=== PATIENT | male | born 1940 | race Hispanic/Latino ===

== ENCOUNTER 2017-03-06 16:23 | Observation (INO) | payer MEDICARE, BC ==
[2017-03-06 17:57] LABS: BASO # 0.1 K/uL (0.0-0.2); BASO % 1.1 % (0.0-2.0); EOS # 0.1 K/uL (0.0-0.7); EOS % 1.4 % (0.0-4.0); HEMATOCRIT 36.4 % (35.0-51.0); LYMPH # 1.2 K/uL (1.0-4.3); LYMPH % 23.8 % (20.0-40.0); MEAN CELL VOLUME 97.1 fL (80.0-94.0); MEAN CORPUSCULAR HEMOGLOBIN 33.3 pg (27.0-31.0); MEAN CORPUSCULAR HGB CONC 34.3 g/dL (33.0-37.0); MEAN PLATELET VOLUME 9.2 fL (7.2-11.7); MONO # 0.6 K/uL (0.0-0.8); MONO % 11.4 % (0.0-10.0); RED CELL DISTRIBUTION WIDTH 13.1 % (11.5-14.5); WHITE BLOOD COUNT 5.2 K/uL (4.8-10.8)
[2017-03-06 17:58] LABS: CHLORIDE 103 mmol/L (98-107)
[2017-03-06 17:59] LABS: POTASSIUM 3.9 mmol/L (3.6-5.2); SODIUM 138 mmol/L (132-148)
[2017-03-06 18:01] LABS: GFR AFRICAN-AMERICAN > 60
[2017-03-06 18:02] LABS: ALB/GLOB RATIO 1.5 (1.0-2.1); ALKALINE PHOSPHATASE 69 U/L (38-126); ALT/SGPT 36 U/L (21-72); AST/SGOT 32 U/L (17-59); BILIRUBIN,TOTAL 1.2 mg/dL (0.2-1.3); BLOOD UREA NITROGEN 21 mg/dL (9-20); CARBON DIOXIDE 23 mmol/L (22-30); GLUCOSE,RANDOM 93 mg/dL (75-110); TOTAL PROTEIN 6.7 g/dL (6.3-8.3)
--- NOTE | 2017-03-06 18:15 | C.PDOC ---
History Of Present Illness 76 year old patient presents to the ED complaining of shortness of breath for the past 4 days. Patient sts SOB is worse at night , specially when he is supine in the bed. In December, patient notes he had a pacemaker put in. He reports he was feeling fine until the shortness of breath started. Patient also complains of mild lower extremity swelling for the past couple of weeks. Patient denies chest pain, nausea, vomiting, fever or cough. Time Seen by Provider: 03/06/17 17:07 Chief Complaint (Nursing): Shortness Of Breath History Per: Patient History/Exam Limitations: no limitations Onset/Duration Of Symptoms: Days (4) Current Symptoms Are (Timing): Still Present Current Respiratory Medications: See Home Med List Severity: Mild Pain Scale Rating Of: 3 Associated Symptoms: Ankle/Leg Swelling Reports Recently: Treated By A Physician, Hospitalized Recent travel outside of the [place]: No Past Medical History Reviewed: Historical Data, Nursing Documentation, Vital Signs Vital Signs: Last Vital Signs Temp 97.8 F 03/06/17 16:29 Pulse 80 03/06/17 18:40 Resp 16 03/06/17 18:40 BP 97/70 L 03/06/17 18:40 Pulse Ox 95 03/06/17 18:40 Surgical History: Pacemaker - [facility] Procedures FLUOROSCOPY OF LEFT HEART USING LOW OSMOLAR CONTRAST (01/16/17) FLUOROSCOPY OF MULT COR ART USING L OSM CONTRAST (01/16/17) MEASURE OF CARDIAC SAMPL & PRESSURE, L HEART, PERC APPROACH (01/16/17) Family History: States: Unknown Family Hx - Social History Hx Alcohol Use: Yes (on occasions) Hx Substance Use: No - Immunization History Hx Tetanus Toxoid Vaccination: No Hx Influenza Vaccination: No Hx Pneumococcal Vaccination: No Review Of Systems Except As Marked, All Systems Reviewed And Found Negative. Constitutional: Negative for: Fever Cardiovascular: Positive for: Other (bilateral lower extremity swelling). Negative for: Chest Pain Respiratory: Positive for: Shortness of Breath. Negative for: Cough Gastrointestinal: Negative for: Nausea, Vomiting Physical Exam - Physical Exam Appears: Non-toxic, No Acute Distress Skin: Warm, Dry Head: Atraumatic, Normacephalic Oral Mucosa: Moist Neck: Normal ROM, Supple Chest: Symmetrical Cardiovascular: Rhythm Regular Respiratory: Normal Breath Sounds, No Rales, No Rhonchi, No Wheezing Gastrointestinal/Abdominal: Soft, No Tenderness Back: Normal Inspection, No CVA Tenderness Extremity: Pedal Edema (+1 pitting; bilateral) Extremity: Bilateral: Atraumatic Neurological/Psych: Oriented x3 ED Course And Treatment - Laboratory Results Result Diagrams: 03/06/17 17:48 03/06/17 17:48 ECG: Interpreted By Me, Viewed By Me Interpretation Of ECG: atrial-sense vertricular paced rhythm. no acute st-t wave changes Rate From EC (bpm) O2 Sat by Pulse Oximetry: 96 (room air) Pulse Ox Interpretation: Normal Progress Note: Plan: EKG, Labs, Chest x-ray Reevaluation Time: 18:49 - Physician Consult Information Physician Contacted: Joanne Murrieta Outcome Of Conversation: Accepted patient to [facility] for observation. Disposition - Disposition Disposition: HOSPITALIZED Disposition Time: 18:49 Condition: FAIR - Clinical Impression Clinical Impression: Dyspnea, CHF (congestive heart failure) - PA / DEVELOPMENT COACH / Resident Statement MD/DO has reviewed & agrees with the documentation as recorded. - Scribe Statement The provider has reviewed the documentation as recorded by the Scribe Jeniffer Forman All medical record entries made by the Scribe were at my direction and personally dictated by me. I have reviewed the chart and agree that the record accurately reflects my personal performance of the history, physical exam, medical decision making, and the department course for this patient. I have also personally directed, reviewed, and agree with the discharge instructions and disposition. Decision To Admit - Pt Status Changed To: Hospital Disposition Of: Observation - . Bed Request Type: Telemetry Admitting Physician: Joanne Murrieta Patient Diagnosis: Dyspnea, CHF (congestive heart failure)
[2017-03-06 18:16] LABS: INR 1.2
[2017-03-06 19:10] LABS: RBC URINE < 1 /hpf (0-3); URINE BILIRUBIN NEGATIVE (NEGATIVE); URINE BLOOD NEGATIVE (NEGATIVE); URINE COLOR Yellow (YELLOW); URINE GLUCOSE (UA) NORMAL (Normal); URINE KETONE NEGATIVE (NEGATIVE); URINE LEUKOCYTE ESTERASE NEG Leu/uL (Negative); URINE PROTEIN NEGATIVE (NEGATIVE); WBC URINE < 1 /hpf (0-5)
[2017-03-07 08:32] VITALS: PULSE 64; RESP 17; TEMP 97.4; O2SAT 95
[2017-03-07] MEDS: Enoxaparin 40 mg Syringe SC SCH ×2 (10:05→10:17)
[2017-03-07] MEDS: Omega-3-Acid Ethyl Esters 1 GM Cap PO SCH ×2 (10:05→10:18)
[2017-03-07] MEDS: Pantoprazole 40 mg EC Tab PO SCH ×2 (10:05→10:19)
[2017-03-07] MEDS: Potassium Chloride 20 mEq ER Tab PO SCH ×2 (10:05→10:19)
--- NOTE | 2017-03-07 10:15 | RAD ---
PROCEDURE: CHEST RADIOGRAPH, 1 VIEW HISTORY: Shortness of breath COMPARISON: 01/18/2017 FINDINGS: LUNGS: The right lung is clear. There is left retrocardiac airspace disease. PLEURA: There is blunting of the left costophrenic angle. No pneumothorax or right pleural fluid seen. CARDIOVASCULAR: The heart remains enlarged. There is interval placement of a left-sided dual lead transvenous permanent pacing device. Atherosclerotic aortic arch calcifications are present. . OSSEOUS STRUCTURES: No significant abnormalities. VISUALIZED UPPER ABDOMEN: Normal. OTHER FINDINGS: None. IMPRESSION: 1. Suspect left lower lobe atelectasis/pneumonia and small pleural effusion. 2. Persistent cardiomegaly.
[2017-03-07 10:23] VITALS: BP 97/62
--- NOTE | 2017-03-07 11:17 | CP.PCM.CON ---
Past Patient History - Past Medical History & Family History Past Medical History?: No - Past Social History Smoking Status: Never Smoked - CARDIAC Hx Cardiac Disorders: Yes Hx Congestive Heart Failure: Yes Hx Hypercholesterolemia: Yes Hx Hypertension: Yes Hx Pacemaker: Yes - PULMONARY Hx Respiratory Disorders: No - NEUROLOGICAL Hx Neurological Disorder: No - HEENT Hx HEENT Problems: No - RENAL Hx Chronic Kidney Disease: No - ENDOCRINE/METABOLIC Hx Endocrine Disorders: No - HEMATOLOGICAL/ONCOLOGICAL Hx Blood Disorders: No - INTEGUMENTARY Hx Dermatological Problems: No - MUSCULOSKELETAL/RHEUMATOLOGICAL Hx Musculoskeletal Disorders: No Hx Falls: No - GASTROINTESTINAL Hx Gastrointestinal Disorders: No - GENITOURINARY/GYNECOLOGICAL Hx Genitourinary Disorders: No - PSYCHIATRIC Hx Psychophysiologic Disorder: No Hx Substance Use: No - SURGICAL HISTORY Hx Surgeries: Yes Other/Comment: Pacemaker placement - ANESTHESIA Hx Anesthesia: Yes Hx Anesthesia Reactions: No Meds Allergies/Adverse Reactions: Allergies Allergy/AdvReac Type Severity Reaction Status Date / Time No Known Allergies Allergy Verified 01/16/17 15:57 - Medications Medications: Current Medications Aspirin (Aspirin Chewable) 81 mg PO DAILY [facility] Last Admin: 03/07/17 10:20 Dose: 81 mg Carvedilol (Coreg) 3.125 mg PO BID [facility] Last Admin: 03/07/17 10:04 Dose: Not Given Enoxaparin Sodium (Lovenox) 40 mg SC DAILY [facility] Last Admin: 03/07/17 10:17 Dose: 40 mg Furosemide (Lasix) 20 mg IVP BID [facility] Last Admin: 03/07/17 10:18 Dose: 20 mg [id number] Ethyl Esters (Lovaza) 2 gm PO BID [facility] Last Admin: 03/07/17 10:18 Dose: 2 gm Pantoprazole Sodium (Protonix Ec Tab) 40 mg PO DAILY [facility] Last Admin: 03/07/17 10:19 Dose: 40 mg Potassium Chloride (K-Dur 20 Meq Er Tab) 20 meq PO DAILY [facility] Last Admin: 03/07/17 10:19 Dose: 20 meq Rosuvastatin Calcium (Crestor) 20 mg PO HS [facility] Tamsulosin HCl (Flomax) 0.4 mg PO DAILY [facility] Last Admin: 03/07/17 10:18 Dose: 0.4 mg Zolpidem Tartrate (Ambien) 10 mg PO HS PRN PRN Reason: Insomnia Results - Vital Signs Recent Vital Signs: Last Vital Signs Temp 97.4 F L 03/07/17 07:20 Pulse 64 03/07/17 07:20 Resp 17 03/07/17 07:20 BP 97/62 L 03/07/17 10:18 Pulse Ox 95 03/07/17 07:20 - Labs Result Diagrams: 03/06/17 17:48 03/06/17 17:48 Labs: Laboratory Results - last 24 hr 03/06/17 03/07/17 19:04 02:27 Total Creatine Kinase 63 CK-MB (Mass) 1.10 Troponin I, Quant 0.1040 Urine Color Yellow Urine Clarity Clear Urine pH 5.0 Ur Specific [place] 1.020 Urine Protein Negative Urine Glucose (UA) Normal Urine Ketones Negative Urine Blood Negative Urine Nitrate Negative Urine Bilirubin Negative Urine Urobilinogen 4.0 Ur Leukocyte Esterase Neg Urine WBC (Auto) < 1 Urine RBC (Auto) < 1
--- NOTE | 2017-03-07 11:20 | CP.PCM.HP ---
Past Patient History - Past Medical History & Family History Past Medical History?: No - Past Social History Smoking Status: Never Smoked - CARDIAC Hx Cardiac Disorders: Yes Hx Congestive Heart Failure: Yes Hx Hypercholesterolemia: Yes Hx Hypertension: Yes Hx Pacemaker: Yes - PULMONARY Hx Respiratory Disorders: No - NEUROLOGICAL Hx Neurological Disorder: No - HEENT Hx HEENT Problems: No - RENAL Hx Chronic Kidney Disease: No - ENDOCRINE/METABOLIC Hx Endocrine Disorders: No - HEMATOLOGICAL/ONCOLOGICAL Hx Blood Disorders: No - INTEGUMENTARY Hx Dermatological Problems: No - MUSCULOSKELETAL/RHEUMATOLOGICAL Hx Musculoskeletal Disorders: No Hx Falls: No - GASTROINTESTINAL Hx Gastrointestinal Disorders: No - GENITOURINARY/GYNECOLOGICAL Hx Genitourinary Disorders: No - PSYCHIATRIC Hx Psychophysiologic Disorder: No Hx Substance Use: No - SURGICAL HISTORY Hx Surgeries: Yes Other/Comment: Pacemaker placement - ANESTHESIA Hx Anesthesia: Yes Hx Anesthesia Reactions: No Meds Allergies/Adverse Reactions: Allergies Allergy/AdvReac Type Severity Reaction Status Date / Time No Known Allergies Allergy Verified 01/16/17 15:57 Results - Vital Signs Recent Vital Signs: Last Vital Signs Temp 97.4 F L 03/07/17 07:20 Pulse 64 03/07/17 07:20 Resp 17 03/07/17 07:20 BP 97/62 L 03/07/17 10:18 Pulse Ox 95 03/07/17 07:20 - Labs Result Diagrams: 03/06/17 17:48 03/06/17 17:48 Labs: Laboratory Results - last 24 hr 03/06/17 03/07/17 19:04 02:27 Total Creatine Kinase 63 CK-MB (Mass) 1.10 Troponin I, Quant 0.1040 Urine Color Yellow Urine Clarity Clear Urine pH 5.0 Ur Specific [place] 1.020 Urine Protein Negative Urine Glucose (UA) Normal Urine Ketones Negative Urine Blood Negative Urine Nitrate Negative Urine Bilirubin Negative Urine Urobilinogen 4.0 Ur Leukocyte Esterase Neg Urine WBC (Auto) < 1 Urine RBC (Auto) < 1
--- NOTE | 2017-03-07 12:48 | PCM.HF ---
Heart Failure Core Measure - Heart Failure Ejection Fraction: Less Than 40 % (EF 30%) KYAW Inhibitor Prescribed: No Contraindication/Reason for not providing: LOW BP Beta-Yared Prescribed: Carvedilol Angiotensin II Receptor Yared Prescribed: No Contraindication/Reason for not providing: low bp AnticoagulationTherapy for Atrial Fibrillation/Atrialflutter: No Contraindication/Reason for not providing: no afib Aldosterone Antagonist Prescribed: No Contraindication/Reason for not providing: LOW BP Hydralazine Nitrate Prescribed: No Contraindication/Reason for not providing: low BP Implantable Cardioverter Defibrillator Therapy: Yes Cardiac Resynchronization Therapy Prescribed: No Contraindication/Reason for not providing: has pacemaker - Follow up Will be discharged to: Home Follow Up Date (must be within 7 days from discharge): 03/10/17 Follow Up Time: 09:00
--- NOTE | 2017-03-07 16:54 | CP.PCM.PN ---
Subjective - Date & Time of Evaluation Date of Evaluation: 03/06/17 Time of Evaluation: 16:55 - Subjective Subjective: Alert, awake, NAD. Objective - Vital Signs/Intake and Output Vital Signs (last 24 hours): Temp Pulse Resp BP Pulse Ox 97.4 F L 64 17 97/62 L 95 03/07/17 07:20 03/07/17 07:20 03/07/17 07:20 03/07/17 10:18 03/07/17 07:20 - Labs Labs: PT 13.6 SECONDS (9.7-12.2) H 03/06/17 17:48 INR 1.2 03/06/17 17:48 APTT 35 SECONDS (21-34) H 03/06/17 17:48 Assessment and Plan - Assessment and Plan (Free Text) Assessment: Patient is seen and examined. Alert, orientedx3, no sob or chest pains. Cleared by DR Worthy, advised to discontinue lasix and take coreg every other day due to low BP SBP 90's. Advised to f/u with PMD in 1 week.
[2017-03-07] MEDS ORDERED: Furosemide 10 mg/mL LIQ (60mL) PO ONE (19:05)
--- NOTE | 2017-03-09 08:39 | CARD ---
APPROVED REPORT EKG Measurement Heart [id number] <Conclusion> Atrial-sensed ventricular-paced rhythm Abnormal ECG
== END 2017-03-07 15:00 | disposition home or self-care (01) ==
LOC: C.ER 16:23 → C.9E 18:46 → C.6T 19:14
PROVIDERS: ADMIT Internal Medicine Critical Care Medicine; ATTEND Internal Medicine Critical Care Medicine
DX: I50.9 Heart failure, unspecified (principal); R06.00 Dyspnea, unspecified; Z95.0 Presence of cardiac pacemaker
CPT/HCPCS: 36415; 71010; 80053; 81001; 82550; 83880; 84484; 85025; 85610; 85730; 93005; 97161; 99285; G0378; G8978; G8979; G8980; J1650; J1940